=== PATIENT | male | born 1995 | race Two or more races ===

== ENCOUNTER 2016-12-28 12:50 | Emergency (ER) | payer SELFPAY ==
[~2016-12-28] VITALS: Ht 175.3 cm; Wt 65.8 kg
[2016-12-28] MEDS ORDERED: Tetanus/Diptheria/Pertussis Vaccine 0.5ml Syr IM ONE (13:00)
[2016-12-28] MEDS ORDERED: Lidocaine 1% Plain 30 ml INJ ONE (13:00)
[2016-12-28] MEDS ORDERED: Norco 7.5mg/325mg tab ORAL ONE (13:00)
--- NOTE | 2016-12-28 13:18 | Emergency Room Report ---
History of Present Illness General Chief Complaint: Laceration Source: Patient Present Illness HPI 21-year-old presents to the emergency department complaining of lacerations to the palm of the right hand. Patient is right-hand dominant. Patient states that he was attempting to shut a window quickly so a that would not leave the house and he accidentally put his hand through the window. Patient does not know when his last tetanus vaccination was. Patient reports bleeding at this time. Patient states that the right third and fourth digits are primarily effected. Patient reports that pain is 10 out of 10 in severity he denies taking blood thinning medications. Denies numbness tingling or loss of sensation or gross motor movements of the extremities, incontinence of bowel or bladder. Denies CP, Palpitations, LOC, AMS, dizziness, Changes in Vision, Sensation, paresthesias, or a sudden severe headache. Allergies: Coded Allergies: No Known Allergies (Unverified , 12/28/16) Patient History Past Medical History: see triage record Past Surgical History: none Pertinent Family History: none Reviewed Nursing Documentation: PMH: Agreed, PSxH: Agreed Nursing Documentation-PMH Past Medical History: No Stated History Review of Systems All Other Systems: negative except mentioned in HPI Physical Exam Vital Signs Date Time Temp Pulse Resp B/P Pulse Ox O2 Delivery O2 Flow Rate FiO2 12/28/16 12:43 98.1 82 16 130/80 98 Room Air Sp02 EP Interpretation: reviewed, normal General Appearance: no apparent distress, alert, GCS 15, non-toxic Head: normocephalic, atraumatic Eyes: bilateral eye PERRL, bilateral eye normal inspection ENT: hearing grossly normal, normal pharynx, no angioedema, normal voice Neck: full range of motion, supple/symm/no masses Respiratory: lungs clear, normal breath sounds, speaking full sentences Cardiovascular #1: regular rate, rhythm, no edema, normal capillary refill Musculoskeletal: back normal, gait/station normal, tender - TTP to the dorsum of the right 3rd and 4th digits, limited ROM Neurologic: alert, oriented x3, responsive, motor strength/tone normal, sensory intact, speech normal Psychiatric: judgement/insight normal, memory normal, mood/affect normal Skin: normal color, no rash, warm/dry, well hydrated, laceration - two 1.5 cm lacerations to the palmar aspect of the right 3rd and 4th digits at the DIP joints. the 4th digit has complete flexor tendon disruption, the 3rd digit has partial. no fb's are visualized. Medical Decision Making PA Attestation Dr. zazueta is my supervising Physician whom patient management has been discussed with. Diagnostic Impression: Primary Impression: Laceration Additional Impression: Flexor tendon laceration of finger with open wound Qualified Codes: S56.129A - Laceration of flexor muscle, fascia and tendon of unspecified finger at forearm level, initial encounter; S61.209A - Unspecified open wound of unspecified finger without damage to nail, initial encounter ER Course 21-year-old presents to the emergency department complaining of lacerations to the palm of the right hand. Patient is right-hand dominant. Patient states that he was attempting to shut a window quickly so a that would not leave the house and he accidentally put his hand through the window. Patient does not know when his last tetanus vaccination was. Patient reports bleeding at this time. Patient states that the right third and fourth digits are primarily effected. Patient reports that pain is 10 out of 10 in severity he denies taking blood thinning medications. Denies numbness tingling or loss of sensation or gross motor movements of the extremities, incontinence of bowel or bladder. Denies CP, Palpitations, LOC, AMS, dizziness, Changes in Vision, Sensation, paresthesias, or a sudden severe headache. Ddx considered but are not limited to laceration, tendon injury, cellulitis, amputation Vital signs: are WNL, pt. is afebrile H&PE are most consistent with: two lacerations on the third and fourth approx 2 cm in length each. ORDERS: -- X-ray Right hand 3 view - negative for fx, Dislocation, or foreign body noted - per preliminary read in ED by Dr. Gold - interpretation is scribed by PA. -PT/PTT: WNL -CBC: unremarkable -BMP: unremarkable -Type and Screen: O POSITIVE ED INTERVENTIONS: -Tetanus vaccine was administered as pt. vaccination status was unknown. - The wound was copiously irrigated with normal saline, and explored for foreign body for which no FB was found, Flexor Tendon laceration noted - complete in the 4th digit, and partial in the 3rd digit. . Discussed with patient: That hand specialist consult is required and that most likely surgical repair is needed. - Admission process was initiated. Dr. Domingo Muhammad came to evaluate the Pt. he recommended OR surgical repair. - Dr. muhammad d/w pt. that OR is not available today, and that that surgery can be performed tomorrow AM. Pt. did not want to wait until tomorrow am for tendon repair, and requested to leave to try and have surgery performed today at another hospital . Sterile dressing and Finger Splint applied to the right 3rd and 4th digits by vending machine technician. Pt. remains neurovascularly intact. DISPOSITION: Pt. Requests AMA. - At this time the patient is requesting to leave AGAINST MEDICAL ADVICE. I believe that this patient has the capacity to make decisions on His own. I discussed with the patient the risks of leaving AMA. Some of these risks include delay in diagnosis and treatment, as well as worsening of symptoms, permanent disability, loss of limb or even . After discussing these risks with the patient. H continues to express His want to leave AGAINST MEDICAL ADVICE. I encouraged the patient to return at any time, and that he will be welcome here in the emergency department to continue medical management. Labs Test 12/28/16 14:30 White Blood Count 7.9 K/UL (4.8-10.8) Red Blood Count 4.92 M/UL (4.70-6.10) Hemoglobin 15.2 G/DL (14.2-18.0) Hematocrit 47.4 % (42.0-52.0) Mean Corpuscular Volume 96 FL (80-99) Mean Corpuscular Hemoglobin 30.9 PG (27.0-31.0) Mean Corpuscular Hemoglobin Concent 32.1 G/DL (32.0-36.0) Red Cell Distribution Width 11.1 % (11.6-14.8) Platelet Count 195 K/UL (150-450) Mean Platelet Volume 8.4 FL (6.5-10.1) Neutrophils (%) (Auto) 77.9 % (45.0-75.0) Lymphocytes (%) (Auto) 13.2 % (20.0-45.0) Monocytes (%) (Auto) 7.4 % (1.0-10.0) Eosinophils (%) (Auto) 0.5 % (0.0-3.0) Basophils (%) (Auto) 1.0 % (0.0-2.0) Prothrombin Time 10.6 SEC (9.30-11.50) Prothromb Time International Ratio 1.0 (0.9-1.1) Activated Partial Thromboplast Time 24 SEC (23-33) Sodium Level 139 mEQ/L (135-145) Potassium Level 4.1 mEQ/L (3.4-4.9) Chloride Level 100 mEQ/L (98-107) Carbon Dioxide Level 29 mEQ/L (20-30) Anion Gap 10 (5-15) Blood Urea Nitrogen 16 mg/dL (7-23) Creatinine 1.1 mg/dL (0.7-1.2) Estimat Glomerular Filtration Rate > 60 mL/min (>60) Glucose Level 96 mg/dL (74-106) Calcium Level 9.6 mg/dL (8.6-10.2) Last Vital Signs Date Time Temp Pulse Resp B/P Pulse Ox O2 Delivery O2 Flow Rate FiO2 12/28/16 12:43 98.1 82 16 130/80 98 Room Air Disposition: AGAINST MEDICAL ADVICE Condition: Stable Physician Consult: Dr. Domingo Muhammad Scripts Acetaminophen* (TYLENOL EXTRA STRENGTH*) 500 Mg Tablet 500 MG ORAL Q6H, #20 TAB 0 Refills Prov: Any Andrade 12/28/16 Bacitracin/Polymyxin B Sulfate (BACITRACIN-POLYMYXIN OINTMENT) 28.35 Gm Oint...g. 1 APPLIC TP BID, #28.3 GM Prov: Any Andrade 12/28/16 Cephalexin* (KEFLEX*) 500 Mg Capsule 500 MG ORAL EVERY 12 HOURS for 7 Days, #14 CAP 0 Refills Prov: Any Andrade 12/28/16 Patient Instructions: Laceration Care, Adult Additional Instructions: Take medications as directed. Follow up with a Primary Care Provider in 3-5 days, even if your symptoms have resolved. --Please review list of primary care clinics, if you do not already have a primary care provider Return sooner to ED if new symptoms occur, or current symptoms become worse. - Please note that this Emergency Department Report was dictated using I Do Now I Don'tpattern scratcher technology software, occasionally this can lead to erroneous entry secondary to interpretation by the dictation equipment. Any Andrade Dec 28, 2016 13:18
[2016-12-28] MEDS ORDERED: BACITRACIN-P28.35 GM TP (13:59)
[2016-12-28] MEDS ORDERED: CEPHALEXIN500 MG ORAL (13:59)
[2016-12-28 14:55] LABS: EOSINOPHILS % (AUTO) 0.5 % (0.0-3.0); LYMPHOCYTES % (AUTO) 13.2 % (20.0-45.0); MEAN CORPUSCULAR HEMOGLOBIN 30.9 PG (27.0-31.0); MEAN CORPUSCULAR HGB CONC 32.1 G/DL (32.0-36.0); MEAN CORPUSCULAR VOLUME 96 FL (80-99); MEAN PLATELET VOLUME 8.4 FL (6.5-10.1); MONOCYTES % (AUTO) 7.4 % (1.0-10.0); NEUTROPHILS % (AUTO) 77.9 % (45.0-75.0); PLATELET COUNT 195 K/UL (150-450); RED BLOOD COUNT 4.92 M/UL (4.70-6.10); RED CELL DISTRIBUTION WIDTH 11.1 % (11.6-14.8); WHITE BLOOD COUNT 7.9 K/UL (4.8-10.8)
[2016-12-28 15:07] LABS: PROTHROMBIN TIME 10.6 SEC (9.30-11.50)
[2016-12-28 15:08] LABS: ANION GAP 10 (5-15); CALCIUM 9.6 mg/dL (8.6-10.2); CARBON DIOXIDE 29 mEQ/L (20-30); CHLORIDE 100 mEQ/L (98-107); CREATININE 1.1 mg/dL (0.7-1.2); GLOMERULAR FILTRATION RATE > 60 mL/min (>60); HEMOLYSIS 7; POTASSIUM 4.1 mEQ/L (3.4-4.9); SODIUM 139 mEQ/L (135-145)
--- NOTE | 2016-12-28 15:19 | Diagnostic Imaging Report ---
Indication: pain Findings: 3 views of the right hand were obtained. Normal bony mineralization and alignment are demonstrated. No acute fractures, erosions, or periosteal reaction are seen. Soft tissues are unremarkable. Impression: Negative examination of the right hand. Note: The fingers are not evaluated well because of flexion which is present on all of the views
[2016-12-28] MEDS ORDERED: TYLENOL EXTRA500 MG ORAL (15:52)
[2016-12-28 16:23] VITALS: BP 130/80
== END 2016-12-28 16:15 | disposition left against medical advice (07) ==
LOC: EDBD 12:50 → EMR 13:29 → EDBEDREQSVC 15:37 → EDBEDREQ 15:37 → EMR 16:15
DX: S61.411A Laceration without foreign body of right hand, initial encounter (principal); S66.124A Laceration of flexor muscle, fascia and tendon of right ring finger at wrist and hand level, initial encounter; S66.122A Laceration of flexor muscle, fascia and tendon of right middle finger at wrist and hand level, initial encounter; W25.XXXA Contact with sharp glass, initial encounter; Y92.009 Unspecified place in unspecified non-institutional (private) residence as the place of occurrence of the external cause; Z23 Encounter for immunization
CPT/HCPCS: 36415; 73130; 80048; 85025; 85610; 85730; 86850; 86900; 86901; 90471; 90715; 96372; 99284; J2001

== ENCOUNTER 2017-12-31 18:05 | Emergency (ER) | payer MEDICAID, SELFPAY ==
[~2017-12-31] VITALS: Ht 185.4 cm; Wt 72.6 kg
[~2017-12-31 18:05] MED LIST: BACITRACIN-P28.35 GM TP; CEPHALEXIN500 MG ORAL; TYLENOL EXTRA500 MG ORAL
--- NOTE | 2017-12-31 19:10 | Emergency Room Report ---
History of Present Illness General Chief Complaint: Headache Source: Patient Present Illness HPI 22 YO male presents to the ED c/o right sided BUTLER intermittent daily that is 10/ 10 in severity. pt. has been evaluated at other ED's twice in the last week for the same complaint .pt. reports prescribed medications do not provide relief of his symptoms. pt also reports rhinorrhea and increased lacrimation during episodes of BUTLER. pt denies hx of migraines. denies trauma or sudden severe onset. Reports appt. with neurologist on Sunday denies paresthesias, N/V, dizziness, hyperacusis, aura's, neck pain or stiffness. denies photophobia. Has taken Toradol and sumatriptan with no relief. Allergies: Coded Allergies: No Known Allergies (Unverified , 12/28/16) Patient History Past Medical History: see triage record Past Surgical History: none Pertinent Family History: none Reviewed Nursing Documentation: PMH: Agreed; PSxH: Agreed Nursing Documentation-PMH Past Medical History: No Stated History Review of Systems All Other Systems: negative except mentioned in HPI Physical Exam Vital Signs Date Time Temp Pulse Resp B/P (MAP) Pulse Ox O2 Delivery O2 Flow Rate FiO2 12/31/17 18:11 97.8 67 16 109/65 95 Room Air 97.9 Sp02 EP Interpretation: reviewed, normal General Appearance: alert, GCS 15, non-toxic, mild distress Head: normocephalic, atraumatic Eyes: bilateral eye normal inspection, bilateral eye PERRL ENT: hearing grossly normal, normal voice Neck: full range of motion, no meningismus, no bony tend Respiratory: chest non-tender, lungs clear, normal breath sounds, no wheezing, speaking full sentences Cardiovascular #1: regular rate, rhythm Musculoskeletal: back normal, gait/station normal, normal range of motion, non- tender Neurologic: alert, oriented x3, responsive, motor strength/tone normal, sensory intact, normal gait, speech normal, grossly normal, oriented Psychiatric: judgement/insight normal Skin: normal color, no rash, warm/dry, well hydrated Medical Decision Making PA Attestation Dr. Tello is my supervising Physician whom patient management has been discussed with. Diagnostic Impression: Primary Impression: Headache Qualified Codes: G44.019 - Episodic cluster headache, not intractable ER Course 22 YO male presents to the ED c/o right sided BUTLER intermittent daily that is 10/ 10 in severity. pt. has been evaluated at other ED's twice in the last week for the same complaint .pt. reports prescribed medications do not provide relief of his symptoms. pt also reports rhinorrhea and increased lacrimation during episodes of BUTLER. pt denies hx of migraines. denies trauma or sudden severe onset. Reports appt. with neurologist on Sunday denies paresthesias, N/V, dizziness, hyperacusis, aura's, neck pain or stiffness. denies photophobia. Has taken Toradol and sumatriptan with no relief. Ddx considered but are not limited to migraine, SAH, Pseudomotor Cerebri,, Mass lesion, Cluster BUTLER, Tension BUTLER, Post lumbar puncture BUTLER. Vital signs: are WNL, pt. is afebrile H&PE are most consistent with cluster BUTLER, no focal neurological deficits. Pt. non-toxic in appearance, ORDERS: - none required at this time, dx is clinical. ED INTERVENTIONS: - Reglan - Oxygen high flow x 10 mins delivered via non-rebreather at a rate of 15L/mins -Pt. reports sx have resolved after ED interventions. DISCHARGE: At this time pt. is stable for d/c to home. Will provide printed patient care instructions, and any necessary prescriptions. Care plan and follow up instructions have been discussed with the patient prior to discharge. Last Vital Signs Date Time Temp Pulse Resp B/P (MAP) Pulse Ox O2 Delivery O2 Flow Rate FiO2 12/31/17 18:11 97.8 67 16 109/65 95 Room Air 97.9 Disposition: HOME, SELF-CARE Condition: Stable Scripts Nebulizer/Compressor (COMP-AIR NEBULIZER SYSTEM) 1 Each Each EACH DAILY, #1 Prov: Any Andrade 12/31/17 Prednisone* (PREDNISONE*) 20 Mg Tablet 60 MG ORAL DAILY for 5 Days, #15 TAB Prov: Any Andrade 12/31/17 Referrals: [facility],REFERRING (PCP) Patient Instructions: Cluster Headache Additional Instructions: Take medications as directed. Follow up with a Primary Care Provider in 3-5 days For a referral to have NEUROLOGIST Evaluation, even if your symptoms have resolved. --Please review list of primary care clinics, if you do not already have a primary care provider Return sooner to ED if new symptoms occur, or current symptoms become worse. - Please note that this Emergency Department Report was dictated using MedAdherencestation mechanic technology software, occasionally this can lead to erroneous entry secondary to interpretation by the dictation equipment. Any Andrade Dec 31, 2017 19:10
[2017-12-31] MEDS ORDERED: PREDNISONE20 MG ORAL (19:27)
[2017-12-31] MEDS ORDERED: COMP-AIR NEBUL1 EACH MC (19:34)
[2017-12-31 19:50] VITALS: BP 118/73
== END 2017-12-31 19:51 | disposition home or self-care (01) ==
LOC: EMR 18:23
DX: R51 Headache (principal)
CPT/HCPCS: 99284; J7512

== ENCOUNTER 2018-02-22 14:28 | Emergency (ER) | payer MEDICAID ==
[~2018-02-22] VITALS: Ht 185.4 cm; Wt 72.6 kg
[~2018-02-22 14:28] MED LIST changes: +COMP-AIR NEBUL1 EACH MC; +PREDNISONE20 MG ORAL
[2018-02-22 14:48] VITALS: BP 138/77
--- NOTE | 2018-02-22 14:53 | Emergency Room Report ---
History of Present Illness General Chief Complaint: Flu Like Symptoms Source: Patient Present Illness HPI 22-year-old male patient presents ER complaining of sore throat for the past 2 days. Reports history of strep throat in the past and states this feels similar. Reports flulike symptoms during this time, reports cough with sputum. reports fever to 99.6, states has been taking TheraFlu. Reports has been taking some antibiotic pills that he had left over, states she has taken 2 pills of Augmentin. Denies abdominal pain. Denies chest pain, shortness of breath, vomiting, diarrhea. Allergies: Coded Allergies: SHELLFISH DERIVED (Verified Allergy, Unknown, 02/22/18) Patient History Past Medical History: see triage record Reviewed Nursing Documentation: PMH: Agreed; PSxH: Agreed Nursing Documentation-PMH Hx Neurological Problems: Yes - migranes Review of Systems All Other Systems: negative except mentioned in HPI Physical Exam Vital Signs Date Time Temp Pulse Resp B/P (MAP) Pulse Ox O2 Delivery O2 Flow Rate FiO2 02/22/18 14:29 99.6 94 18 138/77 97 Room Air 99.7 Sp02 EP Interpretation: reviewed, normal General Appearance: well appearing, no apparent distress, alert, GCS 15, non- toxic Head: normocephalic, atraumatic Eyes: bilateral eye normal inspection, bilateral eye PERRL ENT: hearing grossly normal, normal pharynx, no angioedema, normal voice, TMs + canals normal, uvula midline, moist mucus membranes, tonsillar swelling, pharyngeal erythema, tonsillar exudate, other - no uvula deviation Neck: full range of motion Respiratory: lungs clear, normal breath sounds, no rhonchi, no respiratory distress, no accessory muscle use, no wheezing, speaking full sentences, other - no stridor Cardiovascular #1: regular rate, rhythm, no edema Gastrointestinal: non tender, soft, no mass, non-distended, no guarding, no rebound Psychiatric: mood/affect normal Skin: no rash Lymphatic: adenopathy - cervical Medical Decision Making PA Attestation Dr. Tello is my supervising Physician whom patient management has been discussed with. Diagnostic Impression: Primary Impression: Pharyngitis ER Course Pt presents to ED c/o sore throat. DDX considered but are not limited to influenza, viral URI, strep throat, pharyngitis, tonsillitis. no uvula deviation, no neck stiffness, no stridor, no tripoding, low suspicion for peritonsillar abscess. VITAL SIGNS are WNL, patient is afebrile ER COURSE: tonsillar exudates, pharyngeal erythema, lymphadenopathy, likely pharyngitis. Will provide antibiotic treatment. Continue taking Tylenol for relief of symptoms. saltwater gargles. Drink plenty of fluids. Symptomatic treatment. provide with viscous lidocaine and the ER for sore throat symptoms. Did not take antibiotics from previous visits, complete full course of antibiotics as given. DISCHARGE: Rx provided for amoxicillin -Rx given for Acetaminophen for fever/pain. At this time pt is stable for d/c to home. Patient resting comfortably, in no acute distress, nontoxic appearing, talking without difficulty Patient to take medications as instructed. Will provide with patient care instructions and any necessary prescriptions. Care plan and follow-up instructions provided. Patient instructed to follow-up with primary care provider in 3 - 5 days. Patient questions asked and answered. ER precautions given. Patient instructed to return to ER immediately for any new or worsening of symptoms including but not limited to fever, SOB, difficulty swallowing. - Please note that this Emergency Department Report was dictated using CueThinksoftware development coordinator technology software, occasionally this can lead to erroneous entry secondary to interpretation by the dictation equipment. Last Vital Signs Date Time Temp Pulse Resp B/P (MAP) Pulse Ox O2 Delivery O2 Flow Rate FiO2 02/22/18 14:48 99.7 18 138/77 97 Room Air 99.7 02/22/18 14:48 94 Disposition: HOME, SELF-CARE Condition: Stable Scripts Acetaminophen* (TYLENOL EXTRA STRENGTH*) 500 Mg Tablet 500 MG ORAL Q8H PRN for Prn Headache/Temp > 101, #30 TAB 0 Refills Prov: Parker Keating P.A. 02/22/18 Amoxicillin* (AMOXIL*) 500 Mg Capsule 500 MG ORAL BID, #7 CAP Prov: Parker Keating P.A. 02/22/18 Referrals: [facility],REFERRING (PCP) Patient Instructions: Pharyngitis, [id number] Additional Instructions: Followup with primary care provider in 3 -5 days. Salt water gargles Take Tylenol for pain and fever symptoms Drink plenty of water. Take medications as directed. Complete full course of antibiotics. Do not take antibiotics unless prescribed to you currently. Patient questions asked and answered. ER precautions given, patient instructed to return to ER immediately for any new or worsening of symptoms including but not limited to intractable vomiting, difficulty breathing, inability to eat. Parker Keating. Feb 22, 2018 14:53
[2018-02-22] MEDS ORDERED: TYLENOL EXTRA500 MG ORAL (15:00)
[2018-02-22] MEDS ORDERED: AMOXICILLIN500 MG ORAL (15:00)
[2018-02-22] MEDS ORDERED: Lidocaine 2% Visc 15ml soln ORAL ONE (15:00)
[2018-02-22 15:22] VITALS: BP 138/77
== END 2018-02-22 15:04 | disposition home or self-care (01) ==
LOC: EMR 14:41
DX: J02.9 Acute pharyngitis, unspecified (principal)
CPT/HCPCS: 99282